=== PATIENT | female | born 1955 ===

== ENCOUNTER 2018-06-02 19:35 | Emergency (ER) | payer OTHER ==
[~2018-06-02] VITALS: Ht 152.4 cm; Wt 68.0 kg
[~2018-06-02 19:35] MED LIST: LASIX40 MG; LISINOPRIL5 MG
[2018-06-02] MEDS ORDERED: ULTRACET PO (21:44)
== END 2018-06-02 21:59 | disposition home or self-care (01) ==
LOC: ER 19:35
DX: M54.41 Lumbago with sciatica, right side (principal)

== ENCOUNTER 2018-06-04 15:07 | Outpatient (CLI) | payer OTHER ==
[~2018-06-04 15:07] MED LIST changes: +ULTRACET PO
== END 2018-06-04 15:36 | disposition home or self-care (01) ==
LOC: NUCLEAR 15:07
DX: M79.604 Pain in right leg (principal)